=== PATIENT | female | born 1970 | race Asian ===

== ENCOUNTER 2024-11-25 09:56 | Emergency (ER) | payer OTHER, SELFPAY ==
[2024-11-25 09:58] VITALS: BP 186/115
--- NOTE | 2024-11-25 10:11 | ED.GENMED ---
History of Present Illness
General
Chief Complaint: Musculo-Skeletal Complaint
Time Seen by Provider: 11/25/24 10:06
History of Present Illness
History of Present Illness:
17-year-old female presents to the emergency department for evaluation of right ankle pain, she fell while walking her dog this morning felt acute pain to the right ankle. She is not able to bear weight. Obvious swelling to the right ankle, denies
knee or hip pain
Review of Systems
Review of Systems
Allergies reviewed?: Yes
All Other Systems: ROS reviewed and negative except as documented in HPI and ROS
Phy Exam
Physical Exam
Physical Exam:
GEN: Well appearing, NAD, WDWN
HEENT: Oral mucosa moist, no scleral icterus
Cardiac: Regular rate
Lung: No respiratory distress, no tachypnea
MSK: Severe circumferential swelling to the right ankle, no bony deformity, dorsalis pedis pulse 2+, no proximal fibular or knee tenderness
Skin: Good color, no pallor or jaundice, no rashes
Neuro: AO x3, moves all extremities freely
Psych: Calm, cooperative
Course
Orders/Labs/Results
Orders:
Orders
11/25/24 10:01
Ankle, Right 3 view CR [CR Ankle - Right Min 3 Views *] Urgent
Comment:
Reason For Exam: fall, swelling, pain
11/25/24 10:52
Crutches-Treatment ONCE
CR Ankle - Right 2 Views Urgent
Comment:
Reason For Exam: post reduction
11/25/24 11:29
CR Ankle - Right 2 Views Urgent
Comment:
Reason For Exam: post reduction
Vital Signs
Initial and Last Documented VS:
Initial Vital Signs
Temp Pulse Resp BP Pulse Ox
97.9 F 88 18 186/115 99
11/25/24 09:58 11/25/24 09:58 11/25/24 09:58 11/25/24 09:58 11/25/24 09:58
Last Documented Vital Signs
Temp Pulse Resp BP Pulse Ox
97.9 F 82 16 140/77 99
11/25/24 09:58 11/25/24 11:00 11/25/24 11:00 11/25/24 11:00 11/25/24 11:00
Procedures
Joint/Fracture Reduction
right ankle:
Indication for procedure:: Displaced bimalleolar fracture
Procedure completed by: Nikolai Scott PA-C; Seb Prince
Consent form signed: Yes
If no, reason: Emergency procedure
Anesthesia/sedation: 1% Lidocaine and Injection to joint space
Injury was: closed
Further treatement: needs further treatment
Post reduction exam: stable
Capillary Refill: normal
Normal distal neurovascular exam?: Yes
MDM/Problems Addressed
MDM/Problems Addressed:
Patient with a displaced bimalleolar fracture, reduced at the bedside, initial attempt with not satisfactory positioning's and thus repeat attempt was performed with good alignment. Crutches provided, nonweightbearing, outpatient Ortho follow-up
*Critical Care Note
Total Time (30-74mins, 75-104mins- exclusive of procedures): Not Applicable
ED Attending Note
-
Portions of this chart may have been created with voice recognition software.� Occasional wrong word or��sound alike� substitutions may have occurred due to the inherent limitations of voice recognition software.
Discharge Plan
Departure
Patient Disposition: Home (Routine Discharge)
Date of Disposition: 11/25/24
Time of Disposition: 11:43
Patient with high blood pressure during this ER visit?: No
Discharge Problem:
Bimalleolar fracture of right ankle
Instructions: Ankle Fracture (DC)
Referrals:
Quincy Buchanan MD [Family Provider] -
Fernandez Paris MD [Active] -
Activity Restrictions/Additional Instructions:
Elevate the leg often to reduce swelling
Contact Orthopedics tomorrow for follow up
NO WEIGHT BEARING AT ALL
Interventions
Interventions:
*Risk Screen - Suicide Last Done: 11/25/24 09:58
*General Assessment Last Done: 11/25/24 09:58
*Neglect/Abuse Screening Last Done: 11/25/24 09:58
*ED- Fall Risk Assessment Last Done: 11/25/24 10:38
*ED COVID-19 Vaccine History Last Done: 11/25/24 10:38
*Nursing Disposition Last Done: 11/25/24 12:01
ED-Musculoskeletal Assessment Last Done: 11/25/24 10:18
Discharge Date and Time
Discharge Date/Time: 11/25/24 12:03
Print Language: NEPALI
[2024-11-25 10:38] VITALS: BMI 26.0
[2024-11-25 11:00] VITALS: BP 140/77
== END 2024-11-25 12:03 | disposition home or self-care (01) ==
LOC: EMR 09:56
PROVIDERS: EMERGENCY PHYSICIAN Emergency Medicine; FAMILY PHYSICIAN Internal Medicine
DX: S82.841A Displaced bimalleolar fracture of right lower leg, initial encounter for closed fracture (principal); W19.XXXA Unspecified fall, initial encounter; Y93.K1 Activity, walking an animal
CPT/HCPCS: 27810; 99283; 73600; 73610

== ENCOUNTER → 2024-11-26 09:59 | Outpatient (REF) | payer OTHER, SELFPAY ==
[2024-11-26 10:58] LABS: % Basophils 0.4 % (0-2); % Eosinophils 1.1 % (0-6); % Immature Granulocytes 0.1 % (0-0.5); % Lymphocytes 17.7 % (20.5-51.1); % Monocytes 4.7 % (1.7-9.3); Absolute Eosinophils 0.1 10^3/uL (0-0.7); Absolute Lymphocytes 1.3 10^3/uL (1.2-3.4); Absolute Monocytes 0.4 10^3/uL (0.1-0.6); Absolute Neutrophils 5.8 10^3/uL (1.4-6.5); Hematocrit 45.1 % (37.0-47.0); Hemoglobin 15.1 g/dL (12.0-16.0); Mean Corp Hgb Conc. 33.5 g/dL (33.0-37.0); Mean Corpuscular Hgb 29.1 pg (27.0-31.0); Mean Corpuscular Volume 86.9 fL (81.0-99.0); Mean Platelet Volume 9.1 fL (7.4-10.4); Nucleated Red Blood Cells % 0 %; Platelet Count 279 10^3/uL (130-400); Red Blood Cell Count 5.19 10^6/uL (4.20-5.40); Red Cell Dist. Width 12.4 % (11.5-14.5); White Blood Cell Count 7.6 10^3/uL (4.8-10.8)
[2024-11-26 14:03] LABS: Blood Urea Nitrogen 12 mg/dl (7-17); Calcium 9.9 mg/dl (8.4-10.2); Carbon Dioxide 28 mmol/L (22-30); Chloride 105 mmol/L (98-107); Glucose 103 mg/dl (70-99); Potassium 4.3 mmol/L (3.5-5.1); Sodium 143 mmol/L (135-145); eGFR > 60.00
== END ==
LOC: RCS 09:59
PROVIDERS: ATTENDING PHYSICIAN Orthopaedic Surgery
DX: S82.891A Other fracture of right lower leg, initial encounter for closed fracture (principal)
CPT/HCPCS: 36415; 80048; 85025; 93005